=== PATIENT | female | born 1990 | race Caucasian/White ===

== ENCOUNTER 2017-06-28 06:30 | Day surgery (SDC) | payer MEDICAID ==
[~2017-06-28] VITALS: Ht 165.1 cm; Wt 72.6 kg
[~2017-06-28 06:30] MED LIST: TOPAMAX25 MG PO
[2017-06-28 07:28] VITALS: BP 115/65; Ht 165.1 cm; Wt 72.6 kg
[2017-06-28 07:35] LABS: HEMATOCRIT 43.5 % (36.0-48.0); HEMOGLOBIN 14.7 g/dL (12-16); MCH 30.1 pg (26.0-34.0); MCHC 33.8 g/dL (31.0-37.0); MEAN PLATELET VOLUME 10.7 fL (7.4-10.4); RBC 4.89 10x6/uL (4.00-5.40); RDW 13.4 % (11.5-14.5); WBC 6.6 10x3/uL (4.8-10.8)
[2017-06-28] MEDS ORDERED: JUNEL FE 1.5 M1 EACH PO (07:41)
[2017-06-28 08:00] LABS: HCG URINE NEGATIVE (NEGATIVE)
[2017-06-28] MEDS ORDERED: DURICEF500 MG PO (11:10)
[2017-06-28] MEDS ORDERED: PERCOCET 10/3251 TA1 PO (11:10)
--- NOTE | 2017-06-28 11:49 | NUR ---
1130-RECD FROM PACU. DROWSY. AROUSES EASILY. RESP WITH EASE. DENIES PAIN.
--- NOTE | 2017-06-28 15:56 | NUR ---
1311--PT COMPLAINS OF NAUSEA AND VOMITS YELLOW BILE IN BASIN. ZOFRAN 4MG SIVP GIVEN PER DR. PIPER'S ORDER. JULIA CARTAGENA 1426--PT CONTINUES TO COMPLAIN OF NAUSEA AND RATES PAIN TO FINGERS 5/10, PHENERGAN 12.5MG GIVEN IM AND OXYCODONE 10/325MG X1 GIVEN PO. WILL CONTINUE TO MONITOR. JULIA CARTAGENA 1500--PT REPORTS FEELING BETTER, DISCHARGE INSTRUCTIONS GIVEN AND PT VERBALIZES UNDERSTANDING. PT OFF UNIT VIA WC. JULIA CARTAGENA
--- NOTE | 2017-06-28 16:30 | OP ---
PATIENT NAME: KAREEM CANO MEDICAL RECORD: [id number] :88 LOCATION:[facility] ADMISSION DATE: SURGEON: ИРИНА CAMERON DO DATE OF OPERATION: 06/28/2017 PREOPERATIVE DIAGNOSIS: Right middle finger middle phalanx fracture, it was closed. POSTOPERATIVE DIAGNOSIS: Right middle finger middle phalanx fracture, it was closed. PROCEDURE PERFORMED: Right middle finger middle phalanx open reduction and internal fixation. INDICATIONS: Ms. Cano is a 27-year-old [id number] female that was swinging up her rope swing approximately a week ago and she had her hand caught and twisted and sustained a middle phalanx fracture, oblique in type, closed, of her right middle finger. She was seen in the office and noted to have some malrotation with her cascade on her middle finger and I informed her that we could try to tape it to the other one and treat it conservatively, but she wanted to have something done surgically to fix it. She was also informed that even after surgery, it may malrotate as well. She consented to the procedure and signed up for surgery for today. DESCRIPTION OF PROCEDURE: Ms. Cano was placed in supine position, taken to the operative suite and given a general anesthetic. Her right arm was prepped and draped. A timeout was performed. Everyone was in agreement this is the right hand, the middle finger middle phalanx ORIF or closed reduction percutaneous pinning. She was given 2 grams of Ancef and the middle finger over the middle phalanx was marked out to admit a mid axial incision on the radial side of the middle finger. A 15-blade was used to cut the skin and then dissection was done down to the middle phalanx with scissors bluntly using the bipolar for coagulation. A tourniquet was placed on the finger using a 6-1/2 glove small finger, it was removed not long into the procedure and a block was done with 6 mL of 0.25% Marcaine with epinephrine for the middle finger. Once an incision was made down to the bone, several attempts at reduction were made with a reduction clamp unsuccessfully. The incision was extended and the fracture site was cleaned out. Again, several reduction attempts were made and finally, the reduction was made and after K-wire reduction holding failed, a 1.0 drill was used to drill across the fracture site and perpendicular to the fracture and a 6-mm 1.5 screw was placed that did not quite reach the reduction of loss and an 8-mm 1.2 screw was placed at that time. A second 8-mm 1.2 screw was then placed distal to that one in again perpendicular fashion confirmed on C-arm. The fracture reduction was achieved and the site was irrigated copiously and then closed with simple interrupted sutures using 5-0 nylon on the skin. Adaptic, 4 x 4s was then placed over the incision site and the finger was madisyn taped to the index finger and overwrapped loosely with Coban. She had good cap refill following this on both index and the middle finger at the tips and she was awoken and taken to recovery in stable condition. Blood loss was minimal. TRANSINT:[id number] Voice Confirmation ID: [id number] DOCUMENT ID: [id number] OPERATIVE REPORT [id number] KAREEM CANO MICHAEL D, DO at 1630 CC: [id number] DICTATION DATE: 06/28/17 1114 [employer] SUPERVISOR: 06/28/17 1207 [facility] 06/28/17 [facility] [address] [place] [address]
== END 2017-06-28 15:00 | disposition home or self-care (01) ==
LOC: D.PAN 06:30 → D.OPS 06:30 → D.PAN 08:30 → D.OPS 08:30
PROVIDERS: Anesthesiology; Orthopaedic Surgery
DX: S62.632A Displaced fracture of distal phalanx of right middle finger, initial encounter for closed fracture (principal); Z01.812 Encounter for preprocedural laboratory examination

== ENCOUNTER 2017-09-10 05:48 | Day surgery (SDC) | payer MEDICAID ==
[~2017-09-10] VITALS: Ht 165.1 cm; Wt 71.2 kg
[~2017-09-10 05:48] MED LIST changes: +DURICEF500 MG PO; +JUNEL FE 1.5 M1 EACH PO; +PERCOCET 10/3251 TA1 PO; -TOPAMAX25 MG PO; +TOPAMAX50 MG PO
[2017-09-10 07:40] VITALS: BP 135/74; Ht 165.1 cm; Wt 71.2 kg
[2017-09-10 08:01] LABS: HCG URINE NEGATIVE (NEGATIVE)
[2017-09-10 08:15] LABS: HEMATOCRIT 41.4 % (36.0-48.0); HEMOGLOBIN 13.4 g/dL (12-16); MCH 29.4 pg (26.0-34.0); MCHC 32.4 g/dL (31.0-37.0); MCV 90.8 fL (80.0-100.0); MEAN PLATELET VOLUME 10.1 fL (7.4-10.4); RBC 4.56 10x6/uL (4.00-5.40); RDW 12.9 % (11.5-14.5); WBC 4.7 10x3/uL (4.8-10.8)
[2017-09-10] MEDS ORDERED: PERCOCET 10/3251 TA1 PO (10:43)
[2017-09-10] MEDS ORDERED: DURICEF500 MG PO (10:44)
--- NOTE | 2017-09-10 12:18 | NUR ---
IV DC WITH CATHER TIP INTACT
--- NOTE | 2017-09-10 12:22 | OP ---
PATIENT NAME: KAEREM CANO MEDICAL RECORD: [id number] :88 LOCATION:[facility] ADMISSION DATE: SURGEON: YAZAN CAMERON DO DATE OF OPERATION: 09/10/2017 PROCEDURE PERFORMED: Right middle finger middle phalanx osteotomy with bone graft harvest from distal radius. 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 INDICATIONS: Ms. Cano is a 27-year-old female who underwent an open reduction and internal fixation of a middle phalanx oblique fracture of the right middle finger approximately 3-4 months ago. The fracture did heal; however, after being fixed, it healed in a malunited position and the tip of the middle finger deviated ulnarly. She did not tolerate this as it affected her finger cascade, flexion cascade as well as affected her cosmesis. She says she want it corrected. After having discussion with her and informing her what I would do, she verbally consented to the procedure. She signed the consent as well on the day of surgery. SURGEON: Yazan Cameron DO TOURNIQUET TIME: 50 minutes. ESTIMATED BLOOD LOSS: Minimal. DESCRIPTION OF PROCEDURE: The patient was taken to the operative suite, laid in supine position, given general anesthetic. The right arm was prepped and draped in sterile fashion. Tourniquet was placed above the elbow. A time-out was performed and everyone was in agreeance to correct side, site, and patient. The patient was given Ancef preoperatively for preoperative antibiotics. Once this was done and the arm was prepped and draped and everyone in agreeance to correct patient, correct site and correct surgery, C-arm was draped and we were ready to commence. The right arm was wrapped with an Esmarch, exsanguinated and the tourniquet was inflated. The incision was then marked out over the dorsal aspect of the middle phalanx and careful dissection was made down to the extensor tendon. This incision was then divided in half down to the bone middle phalanx and then cleared off any adhesions that had been from the prior surgery were cleared off and the hardware that was on the radial side was exposed and removed the 2 screws. Once this was done, the new plate was put on the dorsal aspect, the most proximal screw. We used a 3-hole plate, was entered and then the plate was swung out of the way and osteotomy was done at the proposed site transversely. Once this was done, osteotome was used to complete it and the correction was made. The plate was rotated back over and screw was inserted in the most distal hole. This was all done with C-arm, ensuring the malalignment had been corrected and the screws were then tightened down and then bone graft harvest was done at the distal radius just ulnar and proximal to Ignacio's tubercle. A small incision was made through skin and careful dissection was made down the extensor retinaculum. The extensor retinaculum was divided down to bone. Curette was used to make a small hole in the cortex of the distal radius and then used to harvest bone graft. This bone graft was then used to place in the opening spot on the ulnar side of the middle phalanx of the middle finger. Once this was done, adequate bone graft was retrieved. The tourniquet OPERATIVE REPORT [id number] KAREEM CANO was let down at 50 minutes. Coagulation was made in each of the sites. Each of the sites was numbed up with 0.5% Marcaine, a total of 10 mL was used. A digital block was done on the finger and just the skin was anesthetized with Marcaine at the bone graft harvest site. Once this was done, the extensor tendon was closed with 4-0 Ethibond in simple pattern and then the skin on the finger was closed in simple interrupted sutures with 4-0 Monocryl. The extensor retinaculum over the wrist was closed with a single stitch of 2-0 Vicryl and the skin was closed with 3 inverted interrupted stitches with 4-0 Monocryl and then horizontal mattress with 4-0 Monocryl on the skin. Once this was done, Adaptic, 4 x 4s, and Kerlix were placed over the distal radius bone graft harvest site and Coban was lightly wrapped and the finger was dressed with Adaptic, 4 x 4s and then Coban was used to madisyn tape the index finger to the middle finger ensuring the correction be kept. The patient was then awakened and taken to recovery in stable condition. Estimated blood loss was minimal. TRANSINT:[id number] Voice Confirmation ID: [id number] DOCUMENT ID: [id number] YAZAN CAMERON DO at 1222 CC: [id number] DICTATION DATE: 09/10/17 1042 DIRECTOR OF ORTHOPEDICS: 09/10/17 1137 [facility] [address] [place] [address]
== END 2017-09-10 12:33 | disposition home or self-care (01) ==
LOC: D.OPS 05:48 → D.PAN 09:00 → D.OPS 12:33
PROVIDERS: Anesthesiology; Orthopaedic Surgery
DX: S62.622 Displaced fracture of middle phalanx of right middle finger (principal); J45.909 Unspecified asthma, uncomplicated; Z01.812 Encounter for preprocedural laboratory examination

== ENCOUNTER 2019-05-28 17:35 | Emergency (ER) | payer MEDICAID ==
[~2019-05-28] VITALS: Ht 165.1 cm; Wt 80.0 kg
[2019-05-28 17:59] VITALS: Ht 165.1 cm; Wt 80.0 kg
[2019-05-28 18:54] LABS: BASOPHILS 0.5 % (0-2); EOSINOPHILS 3.8 % (0-7); HEMATOCRIT 42.7 % (36.0-48.0); HEMOGLOBIN 14.7 g/dL (12-16); IMMATURE GRANULOCYTES 0.2 % (0-5); LYMPHOCYTES 33.4 % (15-50); MCH 30.7 pg (26.0-34.0); MCHC 34.4 g/dL (31.0-37.0); MCV 89.1 fL (80.0-100.0); MEAN PLATELET VOLUME 9.8 fL (7.4-10.4); NEUTROPHILS 54.1 % (40-80); PLATELET COUNT 234 10x3/uL (130-400); RBC 4.79 10x6/uL (4.00-5.40); RDW 12.9 % (11.5-14.5); WBC 8.3 10x3/uL (4.8-10.8)
[2019-05-28 18:59] LABS: APPEARANCE CLEAR (CLEAR); COLOR YELLOW (YELLOW)
[2019-05-28 19:00] LABS: BILIRUBIN NEGATIVE (NEGATIVE); GLUCOSE NEGATIVE (NEGATIVE); KETONE NEGATIVE (NEGATIVE); NITRITE NEGATIVE (NEGATIVE); PROTEIN NEGATIVE (NEGATIVE); UROBILINOGEN NORMAL (NORMAL)
[2019-05-28 19:01] LABS: BACTERIA MODERATE /hpf (NONE SEEN); EPITHELIAL CELLS 0-5 /hpf (0-5); RED CELLS - URINE 0-5 /hpf (0-5); WHITE CELLS - URINE 0-5 /hpf (0-5)
[2019-05-28 19:09] LABS: ALBUMIN 3.8 g/dL (3.4-5.0); ALKALINE PHOSPHATASE 61 U/L (46-116); ALT (SGPT) 51 U/L (10-68); BILIRUBIN - TOTAL 0.42 mg/dL (0.2-1.3); CALC OSMOLALITY 274 mosm/kg (275-300); CALCIUM 8.9 mg/dL (8.5-10.1); CARBON DIOXIDE 25.1 mmol/L (21.0-32.0); CHLORIDE - SERUM 103 mmol/L (98-107); CREATININE - SERUM 0.6 mg/dL (0.6-1.3); GLUCOSE 74 mg/dL (74-106); POTASSIUM - SERUM 3.9 mmol/L (3.5-5.1); PROTEIN - SERUM 7.3 g/dL (6.4-8.2); SODIUM 138 mmol/L (136-145); UREA NITROGEN 13 mg/dL (7-18); eGFR NON AFRICAN AMERICAN > 90 mL/min (90-120)
[2019-05-28 19:24] LABS: HCG - QUANTITATIVE (MATERNAL) 785 mIU/mL
[2019-05-28 21:51] VITALS: BP 130/64
== END 2019-05-28 21:51 | disposition home or self-care (01) ==
LOC: D.ER 17:35
PROVIDERS: Family Medicine
DX: O26.891 Other specified pregnancy related conditions, first trimester (principal); R10.2 Pelvic and perineal pain

== ENCOUNTER 2021-04-17 08:58 | Emergency (ER) | payer MEDICAID ==
[~2021-04-17] VITALS: Ht 165.1 cm; Wt 90.9 kg
[2021-04-17 09:15] VITALS: BP 141/87; Ht 165.1 cm; Wt 90.9 kg
== END 2021-04-17 13:00 | disposition home or self-care (01) ==
LOC: D.ER 08:58
DX: G43.109 Migraine with aura, not intractable, without status migrainosus (principal)